=== PATIENT | female | born 1975 | race African-American/Black ===

== ENCOUNTER 2020-07-28 17:12 | Inpatient (IN) | payer OTHER ==
[~2020-07-28] VITALS: Ht 154.9 cm; Wt 119.1 kg
[2020-07-28] MEDS ORDERED: SODIUM CHLORIDE 0.9% 1,000 ML IV ONE (17:45)
[2020-07-28 18:04] LABS: BG BASE EXCESS -3.5 mmol/L (-2.0-2.0); BG CARBOXYHEMOGLOBIN 0.3 % (0.5-1.5); BG DEOXYHEMOGLOBIN 2.1 % (0.0-5.0); BG FRACTION INSPIRED OXYGEN 21; BG HCO3 ACT 18.5 mmol/L (22.0-26.0); BG METHEMOGLOBIN 0.4 % (0.0-1.5); BG OXYGEN SATURATION 97.9 % (92.0-98.5); BG OXYHEMOGLOBIN 97.2 % (94.0-97.0); BG PCO2 24.6 mmHg (35.0-45.0); BG PH 7.493 (7.350-7.450); BG PO2 103.2 mmHg (75.0-100.0); BG SAMPLE SITE RIGHT RADIAL; BG TOTAL HEMOGLOBIN 11.2 g/dL (12.0-18.0); BG VENT MODE ROOM AIR
[2020-07-28 18:14] LABS: EOSINOPHILS % 1.1 % (0.0-5.0); HEMATOCRIT. 33.3 % (36.0-48.0); LYMPHOCYTES % 22.3 % (20.0-50.0); MEAN CORPUSCULAR HEMOGLOBIN 29.8 pg (28.0-32.0); MEAN CORPUSCULAR VOLUME 90.1 fL (81.0-99.0); MEAN PLATELET VOLUME 8.1 fl (7.4-10.4); NEUTROPHILS % 68.6 % (40.0-76.0); PLATELET 342 x1000/uL (130-400); RED CELL DISTRIBUTION WIDTH 15.3 % (11.6-14.6)
[2020-07-28 18:21] LABS: CHLORIDE 108 mEq/L (98-107)
[2020-07-28 18:23] LABS: PROTHROMBIN TIME 10.6 sec (9.6-11.0)
[2020-07-28 18:26] LABS: ETHANOL BLOOD < 10 mg/dL
[2020-07-28 18:30] LABS: CREATINE KINASE 222 IU/L (26-192)
[2020-07-28 18:37] LABS: HCG SCREEN NEGATIVE
[2020-07-28] MEDS ORDERED: LACTATED RINGERS 1,000 ML IV SCH (19:00)
[2020-07-28] MEDS ORDERED: PHENYLEPHRINE 50 MG in DEXT 5% WATER 245 ML IV PRN (19:30)
[2020-07-28] MEDS: MORPHINE SULFATE 2 MG/ML CPJ (NOT FOR IM USE) IV PRN (23:45)
[2020-07-28] MEDS ORDERED: CLONIDINE 0.2MG TABLET PO PRN (23:45)
[2020-07-29] VITALS (10 sets, daily range): BP systolic 128–188; BP diastolic 58–94
[2020-07-29] MEDS: MORPHINE SULFATE 2 MG/ML CPJ (NOT FOR IM USE) IV PRN (04:30)
[2020-07-29] MEDS ORDERED: ACETAMINOPHEN 325MG TABLET PO PRN (09:15)
[2020-07-29] MEDS ORDERED: TRAMADOL 50MG TABLET PO PRN (09:15)
[2020-07-29] MEDS ORDERED: ONDANSETRON HCL 4MG/2ML INJ IV PRN (09:15)
[2020-07-29] MEDS ORDERED: HYDR-4133 PO (10:34)
[2020-07-29] MEDS ORDERED: DEXTROSE 50% WATER 50ML SYRINGE IV PRN (12:45)
[2020-07-29] MEDS: BLOOD SUGAR DIAGNOSTIC STRIP TEST SCH ×3 (12:51→20:58)
[2020-07-29] MEDS: INSULIN LISPRO 100 UNITS/ML SUBCUT SCH ×3 (12:52→20:58)
[2020-07-29] MEDS: AMLODIPINE 10MG TABLET PO SCH (13:04)
[2020-07-29] MEDS: SODIUM CHLORIDE 0.45% 1,000 ML IV SCH (17:00)
[2020-07-29] MEDS ORDERED: HYDRALAZINE HCL 50MG TABLET PO NR (17:00)
[2020-07-29] MEDS ORDERED: MAGNESIUM/ALUMINUM HYDROXIDE/SIMETHICONE 30ML UDC PO PRN (18:30)
[2020-07-29] MEDS: HYDRALAZINE HCL 100MG TABLET PO SCH (20:57)
[2020-07-29 21:10] LABS: TOTAL IRON BINDING CAPACITY 144 ug/dL (250-450)
[2020-07-29 21:37] LABS: FERRITIN 324 ng/mL (10-291)
[2020-07-29 21:39] LABS: VITAMIN B12 SERUM >2000 pg/mL pg/mL (211-911)
[2020-07-30] VITALS (12 sets, daily range): BP systolic 126–162; BP diastolic 63–92
[2020-07-30 06:59] LABS: BASOPHILS % 0.6 % (0.0-2.0); EOSINOPHILS % 2.3 % (0.0-5.0); HEMATOCRIT. 31.8 % (36.0-48.0); HEMOGLOBIN. 10.5 g/dL (12.0-16.0); LYMPHOCYTES % 24.6 % (20.0-50.0); MEAN PLATELET VOLUME 7.9 fl (7.4-10.4); MONOCYTES % 8.2 % (2.0-8.0); NEUTROPHILS % 64.3 % (40.0-76.0); PLATELET 307 x1000/uL (130-400); RED BLOOD CELL COUNT 3.49 mill/uL (4.2-5.4); RED CELL DISTRIBUTION WIDTH 15.7 % (11.6-14.6)
[2020-07-30] MEDS: BLOOD SUGAR DIAGNOSTIC STRIP TEST SCH ×3 (08:28→17:55)
[2020-07-30] MEDS ORDERED: PANTOPRAZOLE SODIUM 40 MG/VIAL IV SCH (09:00)
[2020-07-30] MEDS: AMLODIPINE 10MG TABLET PO SCH (09:46)
[2020-07-30] MEDS: HYDRALAZINE HCL 100MG TABLET PO SCH (09:46)
[2020-07-30] MEDS: INSULIN LISPRO 100 UNITS/ML SUBCUT SCH ×3 (09:47→18:03)
[2020-07-30] MEDS: SODIUM CHLORIDE 0.45% 1,000 ML IV SCH (13:00)
== END 2020-07-30 19:00 | disposition home or self-care (01) | DRG 917 ==
LOC: ER 17:12 → 5EST 19:37 → ENRESERV 07-29 08:23
PROVIDERS: ADMIT Internal Medicine; ATTEND Internal Medicine
DX: T46.5X1A Poisoning by other antihypertensive drugs, accidental (unintentional), initial encounter (principal); N17.0 Acute kidney failure with tubular necrosis; E44.0 Moderate protein-calorie malnutrition; R45.851 Suicidal ideations; K76.0 Fatty (change of) liver, not elsewhere classified; K58.9 Irritable bowel syndrome, unspecified; K44.9 Diaphragmatic hernia without obstruction or gangrene; K21.9 Gastro-esophageal reflux disease without esophagitis; I10 Essential (primary) hypertension; K80.20 Calculus of gallbladder without cholecystitis without obstruction; E11.9 Type 2 diabetes mellitus without complications; D50.9 Iron deficiency anemia, unspecified; E66.9 Obesity, unspecified; Z20.822 Contact with and (suspected) exposure to COVID-19; E87.8 Other disorders of electrolyte and fluid balance, not elsewhere classified; Y92.89 Other specified places as the place of occurrence of the external cause
CPT/HCPCS: 36415; 36600; 71045; 74176; 76705; 76770; 80048; 80053; 80307; 80320; 80329; 82140; 82375; 82550; 82607; 82728; 82746; 82805; 82962; 83036; 83540; 83550; 84443; 84484; 84703; 85025; 86256; 86671; 93005; 99285; C9113; J1815; J2270; J7030; G0480

== ENCOUNTER 2021-07-10 10:10 | Inpatient (IN) | payer OTHER ==
[~2021-07-10] VITALS: Ht 157.5 cm; Wt 101.2 kg
[~2021-07-10 10:10] MED LIST: HYDR-4133 PO
[2021-07-10 12:02] LABS: CHLORIDE 111 mEq/L (98-107)
[2021-07-10 12:11] LABS: BASOPHILS % 0.3 % (0.0-2.0); HEMATOCRIT. 26.7 % (36.0-48.0); HEMOGLOBIN. 8.6 g/dL (12.0-16.0); LYMPHOCYTES % 8.1 % (20.0-50.0); MEAN CORPUSCULAR HEMOGLOBIN 29.8 pg (28.0-32.0); MEAN CORPUSCULAR VOLUME 92.3 fL (81.0-99.0); MEAN PLATELET VOLUME 7.4 fl (7.4-10.4); MONOCYTES % 4.8 % (2.0-8.0); NEUTROPHILS % 85.8 % (40.0-76.0); PLATELET 326 x1000/uL (130-400); RED BLOOD CELL COUNT 2.89 mill/uL (4.2-5.4); RED CELL DISTRIBUTION WIDTH 18.6 % (11.6-14.6)
[2021-07-10] MEDS ORDERED: NITROGLYCERIN 50MG PREMIX 250 ML IV ONE (12:45)
[2021-07-10] MEDS ORDERED: HYDROCODONE/ACETAMINOPHEN 10/325MG TABLET PO ONE (13:45)
[2021-07-10] MEDS ORDERED: NITROGLYCERIN 50MG PREMIX 250 ML IV NR (14:00)
[2021-07-10] MEDS ORDERED: NITROGLYCERIN 50MG PREMIX 250ML IV NR (14:00)
[2021-07-10] MEDS ORDERED: MAGNESIUM/ALUMINUM HYDROXIDE/SIMETHICONE 30ML UDC PO PRN (21:45)
[2021-07-10] MEDS ORDERED: ACETAMINOPHEN 325MG TABLET PO PRN ×2 (21:45)
[2021-07-10] MEDS ORDERED: LORAZEPAM 2MG/ML CPJ IV PRN (21:45)
[2021-07-10] MEDS ORDERED: HYDRALAZINE 20MG/ML VIAL IV PRN (21:45)
[2021-07-10] MEDS ORDERED: DIPHENHYDRAMINE 50MG/ML VIAL IV PRN (21:45)
[2021-07-10] MEDS ORDERED: DEXTROSE 50% WATER 50ML SYRINGE IV PRN (21:45)
[2021-07-10] MEDS ORDERED: MAGNESIUM HYDROXIDE 400MG/5ML 30ML UDC PO PRN (21:45)
[2021-07-10] MEDS ORDERED: ZOLPIDEM TARTRATE 5MG TABLET PO PRN (21:45)
[2021-07-10] MEDS ORDERED: CLONIDINE 0.2MG TABLET PO PRN (22:00)
[2021-07-10] MEDS ORDERED: NALOXONE HCL 0.4 MG/ML 1ML VIAL IV PRN (22:00)
[2021-07-10] MEDS: HYDRALAZINE HCL 100MG TABLET PO SCH (22:51)
[2021-07-10] MEDS: SODIUM CHLORIDE 0.9% INJ 3ML FLUSH IVF SCH (22:52)
[2021-07-10] MEDS ORDERED: INSULIN GLARGINE UD 100 UNITS/ML SYR SUBCUT SCH (23:00)
[2021-07-10] MEDS: ONDANSETRON HCL 4MG/2ML INJ IV PRN (23:33)
[2021-07-11] MEDS: HYDROCODONE/ACETAMINOPHEN 5/325MG TABLET PO PRN (00:05)
[2021-07-11] MEDS: SODIUM CHLORIDE 0.9% INJ 3ML FLUSH IVF SCH ×3 (06:19→21:05)
[2021-07-11] MEDS: HYDRALAZINE HCL 100MG TABLET PO SCH ×3 (06:19→22:27)
[2021-07-11] MEDS: INSULIN LISPRO 100 UNITS/ML SUBCUT SCH ×4 (07:14→21:03)
[2021-07-11] MEDS: ONDANSETRON HCL 4MG/2ML INJ IV PRN (08:32)
[2021-07-11] MEDS: LABETALOL HCL 200MG TABLET PO SCH ×2 (08:33→21:05)
[2021-07-11] MEDS: PANTOPRAZOLE 40MG DR TABLET PO SCH ×2 (08:40→21:05)
[2021-07-11 16:00] VITALS: BP 117/44
[2021-07-11 20:00] VITALS: BP 111/52
[2021-07-11] MEDS ORDERED: INSLIS SUBCUT (20:38)
[2021-07-11] MEDS: INSULIN GLARGINE UD 100 UNITS/ML SYR SUBCUT SCH (22:28)
[2021-07-12] VITALS: BP 124/59
[2021-07-12 04:00] VITALS: BP 100/50
[2021-07-12] MEDS: HYDRALAZINE HCL 100MG TABLET PO SCH ×2 (05:38→14:41)
[2021-07-12] MEDS: SODIUM CHLORIDE 0.9% INJ 3ML FLUSH IVF SCH ×3 (05:41→22:12)
[2021-07-12] MEDS: PANTOPRAZOLE 40MG DR TABLET PO SCH ×2 (05:42→22:10)
[2021-07-12] MEDS: INSULIN LISPRO 100 UNITS/ML SUBCUT SCH ×4 (05:45→21:00)
[2021-07-12 08:00] VITALS: BP 127/43
[2021-07-12] MEDS: LABETALOL HCL 200MG TABLET PO SCH ×2 (09:55→22:07)
[2021-07-12 12:00] VITALS: BP 139/76
[2021-07-12 16:00] VITALS: BP 136/80
[2021-07-12 20:00] VITALS: BP 126/61
[2021-07-12] MEDS: HYDRALAZINE HCL 50MG TABLET PO SCH (22:08)
[2021-07-12] MEDS: INSULIN GLARGINE UD 100 UNITS/ML SYR SUBCUT SCH (22:12)
[2021-07-13] VITALS: BP 112/63
[2021-07-13 04:00] VITALS: BP 136/64
[2021-07-13] MEDS: HYDROCODONE/ACETAMINOPHEN 5/325MG TABLET PO PRN ×2 (04:50→15:34)
[2021-07-13] MEDS: HYDRALAZINE HCL 50MG TABLET PO SCH ×3 (07:00→23:53)
[2021-07-13] MEDS: SODIUM CHLORIDE 0.9% INJ 3ML FLUSH IVF SCH ×2 (07:00→12:47)
[2021-07-13] MEDS: PANTOPRAZOLE 40MG DR TABLET PO SCH ×2 (07:00→20:40)
[2021-07-13] MEDS: INSULIN LISPRO 100 UNITS/ML SUBCUT SCH ×4 (07:01→21:00)
[2021-07-13 08:00] VITALS: BP 137/65
[2021-07-13] MEDS: LABETALOL HCL 200MG TABLET PO SCH ×2 (08:00→20:42)
[2021-07-13] MEDS ORDERED: SODIUM POLYSTYRENE SULFONATE 15 G/60 ML BOT PO NR (11:37)
[2021-07-13 12:00] VITALS: BP 124/62
[2021-07-13] MEDS ORDERED: SODIUM POLYSTYRENE SULFONATE 15 G/60 ML BOT PR SCH (15:00)
[2021-07-13 16:00] VITALS: BP 123/53
[2021-07-13] MEDS ORDERED: SODIUM CHLORIDE 0.9% 1,000 ML IV ONE (16:30)
[2021-07-13 20:00] VITALS: BP 140/60
[2021-07-13] MEDS ORDERED: EPOETIN ALFA-EPBX 10,000 UNIT/ML VIAL SUBCUT SCH (21:00)
[2021-07-13] MEDS: INSULIN GLARGINE UD 100 UNITS/ML SYR SUBCUT SCH (22:33)
[2021-07-14] VITALS: BP 140/53
[2021-07-14 03:52] LABS: CLARITY URINE CLEAR (CLEAR); COLOR URINE YELLOW (YELLOW); KETONES URINE NEGATIVE (NEGATIVE); LEUKOCYTE ESTERASE URINE NEGATIVE (NEGATIVE); NITRITE URINE NEGATIVE (NEGATIVE); OCCULT BLOOD URINE NEGATIVE (NEGATIVE); PROTEIN URINE 3+ (NEGATIVE); SPECIFIC GRAVITY URINE 1.014 (1.005-1.030); UROBILINOGEN URINE 0.2 E.U./dL (0.2-1.0)
[2021-07-14 03:57] LABS: UCG SCREEN NEGATIVE
[2021-07-14 04:00] VITALS: BP 119/50
[2021-07-14] MEDS: HYDRALAZINE HCL 50MG TABLET PO SCH ×2 (06:07→12:45)
[2021-07-14 08:00] VITALS: BP 117/54
[2021-07-14] MEDS: PANTOPRAZOLE 40MG DR TABLET PO SCH ×2 (08:20→22:09)
[2021-07-14] MEDS: INSULIN LISPRO 100 UNITS/ML SUBCUT SCH ×4 (08:21→22:10)
[2021-07-14] MEDS: LABETALOL HCL 200MG TABLET PO SCH ×2 (08:21→22:09)
[2021-07-14 08:22] LABS: CHLORIDE 110 mEq/L (98-107)
[2021-07-14 08:32] LABS: BASOPHILS % 0.5 % (0.0-2.0); EOSINOPHILS % 0.8 % (0.0-5.0); HEMATOCRIT. 21.7 % (36.0-48.0); HEMOGLOBIN. 7.2 g/dL (12.0-16.0); LYMPHOCYTES % 11.1 % (20.0-50.0); MEAN CORPUSCULAR HEMOGLOBIN 30.3 pg (28.0-32.0); MEAN PLATELET VOLUME 8.4 fl (7.4-10.4); MONOCYTES % 8.6 % (2.0-8.0); PLATELET 232 x1000/uL (130-400); RED BLOOD CELL COUNT 2.38 mill/uL (4.2-5.4); RED CELL DISTRIBUTION WIDTH 18.5 % (11.6-14.6)
[2021-07-14] MEDS: ONDANSETRON HCL 4MG/2ML INJ IV PRN ×2 (08:55→22:08)
[2021-07-14] MEDS: HYDROCODONE/ACETAMINOPHEN 5/325MG TABLET PO PRN ×4 (08:55→22:09)
[2021-07-14] MEDS ORDERED: DEXT 5%/0.45% NACL 1000ML 1,000 ML IV ONE (09:45)
[2021-07-14 12:00] VITALS: BP 124/64
[2021-07-14] MEDS: SODIUM CHLORIDE 0.9% INJ 3ML FLUSH IVF SCH (12:44)
[2021-07-14 14:56] LABS: TOTAL IRON BINDING CAPACITY 194 ug/dL (250-450)
[2021-07-14 16:00] VITALS: BP 117/48
[2021-07-14 20:00] VITALS: BP 114/54
[2021-07-14] MEDS: INSULIN GLARGINE UD 100 UNITS/ML SYR SUBCUT SCH (22:10)
[2021-07-15] VITALS: BP 115/46
[2021-07-15 04:00] VITALS: BP 120/53
[2021-07-15] MEDS: HYDRALAZINE HCL 50MG TABLET PO SCH ×3 (07:00→13:04)
[2021-07-15] MEDS: INSULIN LISPRO 100 UNITS/ML SUBCUT SCH ×4 (07:40→21:00)
[2021-07-15 08:00] VITALS: BP 122/53
[2021-07-15] MEDS: PANTOPRAZOLE 40MG DR TABLET PO SCH ×2 (08:00→21:44)
[2021-07-15] MEDS: LABETALOL HCL 200MG TABLET PO SCH ×2 (08:00→21:51)
[2021-07-15] MEDS: ONDANSETRON HCL 4MG/2ML INJ IV PRN (09:31)
[2021-07-15 12:00] VITALS: BP 133/49
[2021-07-15] MEDS: BLOOD SUGAR DIAGNOSTIC STRIP TEST SCH ×3 (12:38→21:45)
[2021-07-15] MEDS: SODIUM CHLORIDE 0.9% INJ 3ML FLUSH IVF SCH ×2 (13:04→21:45)
[2021-07-15] MEDS: HYDROCODONE/ACETAMINOPHEN 5/325MG TABLET PO PRN (13:45)
[2021-07-15 16:00] VITALS: BP 113/42
[2021-07-15 20:00] VITALS: BP 147/57
[2021-07-15] MEDS ORDERED: INSULIN GLARGINE UD 100 UNITS/ML SYR SUBCUT SCH (22:00)
[2021-07-15] MEDS ORDERED: CLONIDINE 0.1MG TABLET PO PRN (22:00)
[2021-07-16] VITALS: BP 115/46
[2021-07-16 04:00] VITALS: BP 127/73
[2021-07-16] MEDS: SODIUM CHLORIDE 0.9% INJ 3ML FLUSH IVF SCH ×2 (06:10→13:35)
[2021-07-16] MEDS: INSULIN LISPRO 100 UNITS/ML SUBCUT SCH ×2 (06:10→13:33)
[2021-07-16] MEDS: PANTOPRAZOLE 40MG DR TABLET PO SCH (06:10)
[2021-07-16] MEDS: BLOOD SUGAR DIAGNOSTIC STRIP TEST SCH ×2 (06:10→12:10)
[2021-07-16 07:17] LABS: EOSINOPHILS % 1.1 % (0.0-5.0); HEMATOCRIT. 22.4 % (36.0-48.0); HEMOGLOBIN. 7.5 g/dL (12.0-16.0); LYMPHOCYTES % 18.4 % (20.0-50.0); MEAN CORPUSCULAR HEMOGLOBIN 30.8 pg (28.0-32.0); MEAN CORPUSCULAR VOLUME 91.8 fL (81.0-99.0); MEAN PLATELET VOLUME 8.3 fl (7.4-10.4); MONOCYTES % 8.3 % (2.0-8.0); NEUTROPHILS % 71.2 % (40.0-76.0); PLATELET 268 x1000/uL (130-400); RED BLOOD CELL COUNT 2.44 mill/uL (4.2-5.4); RED CELL DISTRIBUTION WIDTH 18.6 % (11.6-14.6)
[2021-07-16 08:00] VITALS: BP 135/52
[2021-07-16 08:28] LABS: PHOSPHORUS 5.5 mg/dL (2.5-4.9)
[2021-07-16] MEDS ORDERED: HYDRALAZINE HCL 25MG TABLET PO SCH (09:00)
[2021-07-16] MEDS ORDERED: IRON SUCROSE COMPLEX 100 MG/5 ML ML IV SCH (09:00)
[2021-07-16] MEDS ORDERED: LABETALOL HCL 100MG TABLET PO SCH (09:00)
[2021-07-16 12:00] VITALS: BP 141/54
[2021-07-16 14:26] LABS: HEPATITIS B SURFACE ANTIGEN NEGATIVE
[2021-07-16 16:00] VITALS: BP 150/50
[2021-07-16 16:32] VITALS: BP 150/50
[2021-07-16] MEDS ORDERED: EPOETIN ALFA-EPBX 10,000 UNIT/ML VIAL SUBCUT SCH (21:00)
[2021-07-18 09:06] LABS: IMMUNOGLOBULIN A 164 mg/dL (87-352); IMMUNOGLOBULIN G 1342 mg/dL (586-1602); IMMUNOGLOBULIN M 122 mg/dL (26-217)
[2021-07-18 13:06] LABS: A/G RATIO 0.9 (0.7-1.7); ALBUMIN 2.9 g/dL (2.9-4.4); ALPHA-1-GLOBULIN 0.3 g/dL (0.0-0.4); ALPHA-2-GLOBULIN 0.8 g/dL (0.4-1.0); BETA GLOBULIN 0.9 g/dL (0.7-1.3); GAMMA GLOBULINS 1.4 g/dL (0.4-1.8); GLOBULIN TOTAL 3.4 g/dL (2.2-3.9); M-SPIKE Not Observed g/dL (Not Observed); TOTAL PROTEIN SERUM 6.3 g/dL (6.0-8.5)
== END 2021-07-16 17:10 | disposition home or self-care (01) | DRG 304 ==
LOC: ER 10:10 → MICUSO 17:03 → EDBEDREQ 17:06 → EDBEDREQTM 17:06 → EDBEDREQSVC 17:06 → 8WST 07-11 16:32
PROVIDERS: ADMIT Internal Medicine; ATTEND Internal Medicine
DX: I16.1 Hypertensive emergency (principal); E43 Unspecified severe protein-calorie malnutrition; N17.9 Acute kidney failure, unspecified; J84.9 Interstitial pulmonary disease, unspecified; K56.609 Unspecified intestinal obstruction, unspecified as to partial versus complete obstruction; Z68.41 Body mass index [BMI] 40.0-44.9, adult; N18.4 Chronic kidney disease, stage 4 (severe); R55 Syncope and collapse; I12.9 Hypertensive chronic kidney disease with stage 1 through stage 4 chronic kidney disease, or unspecified chronic kidney disease; E11.22 Type 2 diabetes mellitus with diabetic chronic kidney disease; E66.9 Obesity, unspecified; D63.8 Anemia in other chronic diseases classified elsewhere; E11.65 Type 2 diabetes mellitus with hyperglycemia; E11.319 Type 2 diabetes mellitus with unspecified diabetic retinopathy without macular edema; E87.5 Hyperkalemia; G89.29 Other chronic pain; K21.9 Gastro-esophageal reflux disease without esophagitis; K44.9 Diaphragmatic hernia without obstruction or gangrene; D50.9 Iron deficiency anemia, unspecified; K76.0 Fatty (change of) liver, not elsewhere classified; K80.20 Calculus of gallbladder without cholecystitis without obstruction; Z82.49 Family history of ischemic heart disease and other diseases of the circulatory system; Z90.710 Acquired absence of both cervix and uterus; Z85.42 Personal history of malignant neoplasm of other parts of uterus; Z87.19 Personal history of other diseases of the digestive system; Z98.891 History of uterine scar from previous surgery; Z20.822 Contact with and (suspected) exposure to COVID-19
CPT/HCPCS: 36415; 71045; 74176; 76770; 76830; 76856; 80048; 80053; 81003; 81025; 82728; 82784; 82962; 83036; 83540; 83550; 83880; 84100; 84155; 84165; 84484; 85025; 86334; 86705; 86709; 86803; 87340; 87426; 93005; 99291; C1893; J0885; J1200; J1815; J2060; J2405; J3490

== ENCOUNTER 2022-04-17 17:37 | Emergency (ER) | payer OTHER ==
[~2022-04-17] VITALS: Ht 157.5 cm; Wt 73.0 kg
[~2022-04-17 17:37] MED LIST changes: +INSLIS SUBCUT
[2022-04-17] MEDS ORDERED: MORPHINE SULFATE 4 MG/ML CPJ (NOT FOR IM USE) IV STA (18:09)
[2022-04-17] MEDS ORDERED: ONDANSETRON HCL 4MG/2ML INJ IV STA (18:09)
[2022-04-17] MEDS ORDERED: FAMOTIDINE 20MG/2ML VIAL IV ONE (18:15)
[2022-04-17] MEDS ORDERED: SODIUM CHLORIDE 0.9% 1,000 ML IV ONE (18:15)
[2022-04-17 19:17] LABS: BASOPHILS % 0.5 % (0.0-2.0); EOSINOPHILS % 2.2 % (0.0-5.0); HEMATOCRIT. 29.7 % (36.0-48.0); HEMOGLOBIN. 10.2 g/dL (12.0-16.0); LYMPHOCYTES % 16.8 % (20.0-50.0); MEAN CORPUSCULAR HEMOGLOBIN 33.7 pg (28.0-32.0); MEAN CORPUSCULAR VOLUME 98.1 fL (81.0-99.0); MEAN PLATELET VOLUME 6.5 fl (7.4-10.4); MONOCYTES % 5.4 % (2.0-8.0); NEUTROPHILS % 75.1 % (40.0-76.0); PLATELET 445 x1000/uL (130-400); RED BLOOD CELL COUNT 3.03 mill/uL (4.2-5.4); RED CELL DISTRIBUTION WIDTH 16.4 % (11.6-14.6)
[2022-04-17 19:30] LABS: CHLORIDE 98 mEq/L (98-107)
[2022-04-17 19:35] LABS: HCG SCREEN NEGATIVE
[2022-04-17] MEDS ORDERED: ASPIRIN 81MG TABLET PO ONE (21:45)
[2022-04-17 22:22] VITALS: BP 142/69
== END 2022-04-17 23:50 | disposition short-term general hospital (02) ==
LOC: ER 17:37
DX: R10.13 Epigastric pain (principal); K56.41 Fecal impaction; R11.2 Nausea with vomiting, unspecified; R94.39 Abnormal result of other cardiovascular function study; I21.4 Non-ST elevation (NSTEMI) myocardial infarction; E11.22 Type 2 diabetes mellitus with diabetic chronic kidney disease; I12.0 Hypertensive chronic kidney disease with stage 5 chronic kidney disease or end stage renal disease; N18.6 End stage renal disease; D63.1 Anemia in chronic kidney disease; Z99.2 Dependence on renal dialysis; Z20.822 Contact with and (suspected) exposure to COVID-19; Z90.710 Acquired absence of both cervix and uterus; Z79.4 Long term (current) use of insulin
CPT/HCPCS: 36415; 71045; 74176; 80053; 83690; 83880; 84484; 84703; 85025; 87426; 93005; 96361; 96374; 96375; 99285; C9803; J2270; J2405; J3490; J7030

== ENCOUNTER 2022-10-12 15:47 | Emergency (ER) | payer OTHER ==
[~2022-10-12] VITALS: Ht 167.6 cm; Wt 63.0 kg
[2022-10-12 17:38] LABS: BASOPHILS % 0.7 % (0.0-2.0); EOSINOPHILS % 3.9 % (0.0-5.0); HEMATOCRIT. 35.7 % (36.0-48.0); HEMOGLOBIN. 12.1 g/dL (12.0-16.0); LYMPHOCYTES % 38.1 % (20.0-50.0); MEAN CORPUSCULAR HEMOGLOBIN 33.5 pg (28.0-32.0); MEAN CORPUSCULAR VOLUME 98.8 fL (81.0-99.0); MEAN PLATELET VOLUME 7.3 fl (7.4-10.4); MONOCYTES % 8.7 % (2.0-8.0); NEUTROPHILS % 48.6 % (40.0-76.0); PLATELET 258 x1000/uL (130-400); RED BLOOD CELL COUNT 3.61 mill/uL (4.2-5.4)
[2022-10-12 17:49] LABS: CHLORIDE 101 mEq/L (98-107)
[2022-10-12 17:54] LABS: PROTHROMBIN TIME 10.4 sec (9.6-11.0)
[2022-10-12 18:00] VITALS: BP 164/53
== END 2022-10-12 19:40 | disposition home or self-care (01) ==
LOC: ER 15:47
DX: I47.1 Supraventricular tachycardia (principal); I12.0 Hypertensive chronic kidney disease with stage 5 chronic kidney disease or end stage renal disease; E11.22 Type 2 diabetes mellitus with diabetic chronic kidney disease; N18.6 End stage renal disease; Z99.2 Dependence on renal dialysis; D64.9 Anemia, unspecified
CPT/HCPCS: 36415; 71045; 80053; 83880; 84484; 85025; 85610; 93005; 99285; Z7610

== ENCOUNTER 2023-07-28 19:54 | Emergency (ER) | payer OTHER, MEDICAID ==
[~2023-07-28] VITALS: Ht 165.1 cm; Wt 100.0 kg
[2023-07-28 19:58] VITALS: O2SAT 98
[2023-07-28] MEDS ORDERED: IBUPROFEN 600MG TABLET PO STA (20:30)
[2023-07-28] MEDS ORDERED: HYDROMORPHONE HCL/PF 2MG/ML CPJ IM ONE (20:30)
[2023-07-28] MEDS ORDERED: ONDANSETRON 4MG ODT PO ONE (20:45)
[2023-07-28 21:37] LABS: ALANINE AMINOTRANSFERASE 10 IU/L (10-49); ALBUMIN 4.6 g/dL (3.2-4.8); ASPARTATE AMINOTRANSFERASE 20 IU/L (<34); BILIRUBIN TOTAL 0.3 mg/dL (0.1-1.0); CALCIUM 9.1 mg/dL (8.7-10.4); CARBON DIOXIDE 24 mEq/L (21-32); CHLORIDE 104 mEq/L (98-107); GLUCOSE 174 mg/dL (70-105); PROTEIN TOTAL 8.4 g/dL (6.0-8.3); SODIUM 138 mEq/L (136-145); UREA NITROGEN BLOOD 44 mg/dL (9-23)
[2023-07-28 21:51] LABS: CREATININE 8.6 mg/dL (0.6-1.0); ETHANOL BLOOD < 10 mg/dL (<10)
[2023-07-28] MEDS ORDERED: HYDR-4001 MT (21:59)
[2023-07-28 22:46] LABS: BASOPHILS % 0.6 % (0.0-2.0); DIFFERENTIAL COMMENT 0; EOSINOPHILS % 0.6 % (0.0-5.0); HEMATOCRIT. 39.8 % (36.0-48.0); LYMPHOCYTES % 9.8 % (20.0-50.0); MEAN CORPUSCULAR HGB CONC 32.7 g/dL (31.0-37.0); MEAN CORPUSCULAR VOLUME 103.8 fL (81.0-99.0); MEAN PLATELET VOLUME 7.7 fl (7.4-10.4); MONOCYTES % 5.7 % (2.0-8.0); NEUTROPHILS % 83.3 % (40.0-76.0); PLATELET 225 x1000/uL (130-400); RED BLOOD CELL COUNT 3.83 mill/uL (4.2-5.4); RED CELL DISTRIBUTION WIDTH 14.7 % (11.6-14.6); WHITE BLOOD COUNT 13.4 x1000/uL (4.5-11.0)
[2023-07-28 22:59] LABS: PROTHROMBIN TIME 10.7 sec (9.6-11.0)
[2023-07-29] MEDS ORDERED: MORPHINE SULFATE 4 MG/ML CPJ (NOT FOR IM USE) IV NR
[2023-07-29 00:50] LABS: HCG SCREEN NEGATIVE
[2023-07-29 00:51] LABS: CLARITY URINE CLOUDY (CLEAR); COLOR URINE YELLOW (YELLOW); GLUCOSE URINE TRACE (NEGATIVE); KETONES URINE TRACE (NEGATIVE); LEUKOCYTE ESTERASE URINE TRACE (NEGATIVE); NITRITE URINE NEGATIVE (NEGATIVE); OCCULT BLOOD URINE 1+ (NEGATIVE); PROTEIN URINE 3+ (NEGATIVE); SPECIFIC GRAVITY URINE 1.014 (1.005-1.030); UROBILINOGEN URINE 0.2 E.U./dL (0.2-1.0)
[2023-07-29 01:00] LABS: *AMPHETAMINES SCREEN URINE NEGATIVE (NEGATIVE); *BARBITURATES SCREEN URINE NEGATIVE (NEGATIVE); *BENZODIAZEPINES SCREEN URINE NEGATIVE (NEGATIVE); *COCAINE SCREEN URINE NEGATIVE (NEGATIVE); CANNABINOID URINE SCREEN NEGATIVE (NEGATIVE); ECSTASY MDMA SCREEN URINE NEGATIVE (NEGATIVE); METHADONE URINE SCREEN Neg (NEGATIVE); OPIATES URINE SCREEN NEGATIVE (NEGATIVE); PHENCYCLIDINE URINE SCREEN NEGATIVE (NEGATIVE)
[2023-07-29] MEDS ORDERED: MORPHINE SULFATE 2 MG/ML CPJ (NOT FOR IM USE) IV NR (03:15)
[2023-07-29] MEDS ORDERED: CEFEPIME 1,000 MG in DEXTROSE 5% WATER 50 ML IV NR (03:15)
[2023-07-29 06:00] LABS: SQUAMOUS EPITHELIAL CELL URINE 1+ /lpf (RARE/1+); WBC URINE 0-2 /hpf (0-2)
[2023-07-29 06:02] LABS: RBC URINE 0-2 /hpf (0-2)
[2023-07-29 06:03] LABS: BACTERIA URINE 1+
[2023-07-29 08:05] VITALS: BP 140/59; PULSE 58; RESP 15; TEMP 98
== END 2023-07-29 08:26 | disposition short-term general hospital (02) ==
LOC: ER 19:54
DX: N18.6 End stage renal disease (principal); D64.9 Anemia, unspecified; E11.9 Type 2 diabetes mellitus without complications; I12.0 Hypertensive chronic kidney disease with stage 5 chronic kidney disease or end stage renal disease; Z90.710 Acquired absence of both cervix and uterus; Z99.2 Dependence on renal dialysis; Z20.822 Contact with and (suspected) exposure to COVID-19
CPT/HCPCS: 80053; 80320; 83690; 85025; 85610; 36415 ×2; 96372 ×2; 99285; 80305; 81003; 81025; 84703; 83605; 87040; 87804 ×2; 84145; 74176; 93005; 96365; 96366; 87426; Q0162; J1170; Z7610 ×3; J0692; J2270; J7060; G0480

== ENCOUNTER 2024-03-30 08:34 | Emergency (ER) | payer OTHER, MEDICAID ==
[~2024-03-30] VITALS: Ht 165.1 cm; Wt 100.0 kg
[~2024-03-30 08:34] MED LIST changes: +HYDR-2988 PO; +HYDR-4001 MT; -HYDR-4133 PO
[2024-03-30 08:36] VITALS: O2SAT 99
[2024-03-30 09:15] LABS: BASOPHILS % 0.4 % (0.0-2.0); DIFFERENTIAL COMMENT 0; HEMATOCRIT. 39.6 % (36.0-48.0); HEMOGLOBIN. 12.9 g/dL (12.0-16.0); LYMPHOCYTES % 10.6 % (20.0-50.0); MEAN CORPUSCULAR HEMOGLOBIN 33.6 pg (28.0-32.0); MEAN CORPUSCULAR HGB CONC 32.6 g/dL (31.0-37.0); MONOCYTES % 5.9 % (2.0-8.0); NEUTROPHILS % 82.1 % (40.0-76.0); PLATELET 218 x1000/uL (130-400); RED BLOOD CELL COUNT 3.85 mill/uL (4.2-5.4); RED CELL DISTRIBUTION WIDTH 16.6 % (11.6-14.6); WHITE BLOOD COUNT 11.4 x1000/uL (4.5-11.0)
[2024-03-30 09:23] LABS: CHLORIDE 105 mEq/L (98-107); POTASSIUM 4.3 mEq/L (3.5-5.1); SODIUM 141 mEq/L (136-145)
[2024-03-30 09:24] LABS: CARBON DIOXIDE 22 mEq/L (21-32)
[2024-03-30 09:25] LABS: CALCIUM 9.1 mg/dL (8.7-10.4)
[2024-03-30 09:28] LABS: HCG SCREEN NEGATIVE
[2024-03-30 09:29] LABS: GLUCOSE 128 mg/dL (70-105)
[2024-03-30] MEDS: DICYCLOMINE HCL 10MG CAPSULE PO ONE (09:29)
[2024-03-30] MEDS: HYDROCODONE/ACETAMINOPHEN 5/325MG TABLET PO ONE (09:29)
[2024-03-30 09:30] LABS: UREA NITROGEN BLOOD 41 mg/dL (9-23)
[2024-03-30 09:31] LABS: ALANINE AMINOTRANSFERASE < 7 IU/L (10-49); ALBUMIN 4.7 g/dL (3.2-4.8); ASPARTATE AMINOTRANSFERASE 22 IU/L (<34)
[2024-03-30 09:32] LABS: BILIRUBIN TOTAL 0.3 mg/dL (0.1-1.0); PROTEIN TOTAL 8.7 g/dL (6.0-8.3)
[2024-03-30 09:35] LABS: BILIRUBIN DIRECT < 0.1 mg/dL (<=3.0)
[2024-03-30 09:37] LABS: CREATININE 9.7 mg/dL (0.6-1.0)
[2024-03-30 12:07] VITALS: BP 144/63; PULSE 59; RESP 18; TEMP 36.78072; O2SAT 100
== END 2024-03-30 13:18 | disposition home or self-care (01) ==
LOC: ER 08:34
DX: I12.0 Hypertensive chronic kidney disease with stage 5 chronic kidney disease or end stage renal disease (principal); E11.22 Type 2 diabetes mellitus with diabetic chronic kidney disease; D64.9 Anemia, unspecified; N18.6 End stage renal disease; Z99.2 Dependence on renal dialysis
CPT/HCPCS: 36415; 74176; 80048; 80076; 84703; 85025; 99284

== ENCOUNTER 2024-04-08 14:11 | Inpatient (IN) | payer OTHER, MEDICAID ==
[~2024-04-08] VITALS: Ht 157.5 cm; Wt 99.4 kg
[2024-04-08 16:02] LABS: BASOPHILS % 0.5 % (0.0-2.0); DIFFERENTIAL COMMENT 0; EOSINOPHILS % 3.1 % (0.0-5.0); HEMATOCRIT. 36.5 % (36.0-48.0); HEMOGLOBIN. 12.1 g/dL (12.0-16.0); MEAN CORPUSCULAR HEMOGLOBIN 33.9 pg (28.0-32.0); MEAN CORPUSCULAR HGB CONC 33.2 g/dL (31.0-37.0); MEAN CORPUSCULAR VOLUME 102.1 fL (81.0-99.0); MEAN PLATELET VOLUME 7.8 fl (7.4-10.4); MONOCYTES % 7.3 % (2.0-8.0); NEUTROPHILS % 75.1 % (40.0-76.0); PLATELET 340 x1000/uL (130-400); RED BLOOD CELL COUNT 3.58 mill/uL (4.2-5.4); RED CELL DISTRIBUTION WIDTH 15.6 % (11.6-14.6); WHITE BLOOD COUNT 7.3 x1000/uL (4.5-11.0)
[2024-04-08 16:11] LABS: PROTHROMBIN TIME 10.8 sec (9.6-11.0)
[2024-04-08 16:14] LABS: CHLORIDE 103 mEq/L (98-107); POTASSIUM 5.2 mEq/L (3.5-5.1); SODIUM 138 mEq/L (136-145)
[2024-04-08 16:15] LABS: CARBON DIOXIDE 20 mEq/L (21-32)
[2024-04-08 16:16] LABS: HCG SCREEN NEGATIVE
[2024-04-08 16:20] LABS: GLUCOSE 109 mg/dL (70-105); UREA NITROGEN BLOOD 82 mg/dL (9-23)
[2024-04-08 16:22] LABS: ALANINE AMINOTRANSFERASE < 7 IU/L (10-49); ALBUMIN 4.1 g/dL (3.2-4.8); ASPARTATE AMINOTRANSFERASE 12 IU/L (<34); BILIRUBIN TOTAL < 0.2 mg/dL (0.1-1.0); PROTEIN TOTAL 8.2 g/dL (6.0-8.3)
[2024-04-08 16:26] LABS: BILIRUBIN DIRECT < 0.1 mg/dL (<=3.0)
[2024-04-08 16:29] LABS: CREATININE 18.8 mg/dL (0.6-1.0); TROPONIN I HIGH SENSITIVITY 43 ng/L (3.0-34)
[2024-04-08] MEDS ORDERED: SODIUM ZIRCONIUM CYCLOSILICATE 10GM/PACKET PO ONE (16:45)
[2024-04-08] MEDS ORDERED: INSULIN REGULAR (HUMULIN R) 1000UNITS/10ML VIAL IV ONE (16:45)
[2024-04-08] MEDS ORDERED: DEXTROSE 50% WATER 50ML SYRINGE IV ONE (16:45)
[2024-04-08] MEDS ORDERED: CALCIUM GLUCONATE 1GM PREMIX 50 ML IV ONE (16:45)
[2024-04-08] MEDS: FUROSEMIDE 40MG/4ML VIAL IVP ONE (18:07)
[2024-04-08] MEDS: MORPHINE SULFATE 2 MG/ML INJ (NOT FOR IM USE) IV ONE (18:17)
[2024-04-08] MEDS: SODIUM ZIRCONIUM CYCLOSILICATE 10GM/PACKET PO NR (18:18)
[2024-04-08] MEDS: PANTOPRAZOLE SODIUM 40 MG/VIAL IV ONE (18:18)
[2024-04-08 19:35] LABS: CLARITY URINE CLOUDY (CLEAR); COLOR URINE YELLOW (YELLOW); GLUCOSE URINE NEGATIVE (NEGATIVE); KETONES URINE TRACE (NEGATIVE); LEUKOCYTE ESTERASE URINE 2+ (NEGATIVE); NITRITE URINE NEGATIVE (NEGATIVE); OCCULT BLOOD URINE 2+ (NEGATIVE); PH URINE 5.5 (4.5-8.0); PROTEIN URINE 2+ (NEGATIVE); SPECIFIC GRAVITY URINE 1.018 (1.005-1.030); UROBILINOGEN URINE 0.2 E.U./dL (0.2-1.0)
[2024-04-08] MEDS: CALCIUM GLUCONATE 1GM PREMIX 50 ML IV NR (19:44)
[2024-04-08] MEDS: DEXTROSE 50% WATER 50ML SYRINGE IV NR (19:44)
[2024-04-08] MEDS: INSULIN REGULAR (HUMULIN R) 1000UNITS/10ML VIAL IV NR (19:44)
[2024-04-08 19:59] LABS: BACTERIA URINE TRACE; RBC URINE 15-25 /hpf (0-2); WBC URINE 25-50 /hpf (0-2)
[2024-04-08 20:00] LABS: SQUAMOUS EPITHELIAL CELL URINE 2+ /lpf (RARE/1+)
[2024-04-08] MEDS: CEFTRIAXONE 1GM/50ML 50 ML IV ONE (20:51)
[2024-04-08] MEDS: MORPHINE SULFATE 4 MG/ML INJ (FOR IV/IM USE) IV ONE (20:51)
[2024-04-08] MEDS: ONDANSETRON HCL 4MG/2ML INJ IV ONE (21:14)
[2024-04-08] MEDS ORDERED: ONDANSETRON HCL 4MG/2ML INJ IV PRN (21:45)
[2024-04-08] MEDS ORDERED: ACETAMINOPHEN 325MG TABLET PO PRN (21:45)
[2024-04-08] MEDS ORDERED: NITROGLYCERIN 0.4MG TABLET SL SL PRN (21:45)
[2024-04-08] MEDS ORDERED: IPRATROPIUM/ALBUTEROL 0.5-3(2.5)MG/3ML NEB NEB PRN (21:45)
[2024-04-08] MEDS ORDERED: GUAIFENESIN 200MG/10ML SUGAR FREE UDC PO PRN (21:45)
[2024-04-08] MEDS ORDERED: DOCUSATE SODIUM 100MG CAPSULE PO PRN (21:45)
[2024-04-08] MEDS ORDERED: MAGNESIUM/ALUMINUM HYDROXIDE/SIMETHICONE 30ML UDC PO PRN (21:45)
[2024-04-08] MEDS ORDERED: ZOLPIDEM TARTRATE 5MG TABLET PO PRN (21:45)
[2024-04-08] MEDS ORDERED: CLONIDINE 0.1MG TABLET PO PRN (21:45)
[2024-04-08] MEDS: NITROGLYCERIN OINT 1GM/INCH UDPKT TD NR (22:07)
[2024-04-08] MEDS: DIPHENHYDRAMINE 50MG/ML VIAL IV ONE (22:07)
[2024-04-08] MEDS ORDERED: DEXTROSE 50% WATER 50ML SYRINGE IV PRN (22:15)
[2024-04-08] MEDS: NITROGLYCERIN OINT 1GM/INCH UDPKT TD SCH (22:15)
[2024-04-08 22:16] LABS: IRON 85 ug/dL (50-170)
[2024-04-08 22:17] LABS: TRIGLYCERIDE 131 mg/dL (0-150)
[2024-04-08 22:18] LABS: LDL CHOLESTEROL 94 mg/dL (5-100)
[2024-04-08 22:19] LABS: CHOLESTEROL 182 mg/dL (<200); HDL CHOLESTEROL 49 mg/dL (>65); TOTAL IRON BINDING CAPACITY 305 ug/dl (250-425)
[2024-04-08 22:22] LABS: THYROID STIMULATING HORMONE 4.65 uIU/mL (0.55-4.78)
[2024-04-08 22:29] LABS: FOLIC ACID (FOLATE) SERUM 18.06 ng/mL (>5.38)
[2024-04-08] MEDS: PIPERACILLIN/TAZO 3.375G/50ML 50 ML IV SCH (22:38)
[2024-04-08 22:46] LABS: VITAMIN B12 SERUM > 2000 pg/mL (211-911)
[2024-04-08] MEDS ORDERED: VANCOMYCIN 2,000 MG in DEXT 5% WATER 500 ML IV NR (23:00)
[2024-04-08 23:06] LABS: CREATINE KINASE MB FRACTION 3.7 ng/mL (0.5-3.6)
[2024-04-09] VITALS (18 sets, daily range): BP systolic 102–166; BP diastolic 48–85; PULSE 61–90; RESP 17–19; TEMP 36.33624–36.72516; O2SAT 97–100
[2024-04-09] MEDS: ACETAMINOPHEN 325MG TABLET PO PRN (00:47)
[2024-04-09] MEDS ORDERED: NITROGLYCERIN OINT 1GM/INCH UDPKT TD SCH (06:00)
[2024-04-09 06:18] LABS: CREATINE KINASE MB FRACTION 3.6 ng/mL (0.5-3.6)
[2024-04-09] MEDS: BLOOD SUGAR DIAGNOSTIC STRIP TEST SCH (06:23)
[2024-04-09 06:24] LABS: BASOPHILS % 0.9 % (0.0-2.0); DIFFERENTIAL COMMENT 0; EOSINOPHILS % 3.7 % (0.0-5.0); HEMATOCRIT. 35.3 % (36.0-48.0); HEMOGLOBIN. 11.4 g/dL (12.0-16.0); LYMPHOCYTES % 22.9 % (20.0-50.0); MEAN CORPUSCULAR HEMOGLOBIN 32.9 pg (28.0-32.0); MEAN CORPUSCULAR HGB CONC 32.2 g/dL (31.0-37.0); MEAN PLATELET VOLUME 7.7 fl (7.4-10.4); MONOCYTES % 9.4 % (2.0-8.0); NEUTROPHILS % 63.1 % (40.0-76.0); PLATELET 339 x1000/uL (130-400); RED BLOOD CELL COUNT 3.45 mill/uL (4.2-5.4); RED CELL DISTRIBUTION WIDTH 15.7 % (11.6-14.6); WHITE BLOOD COUNT 5.9 x1000/uL (4.5-11.0)
[2024-04-09] MEDS: INSULIN LISPRO 100 UNITS/ML SUBCUT SCH (06:24)
[2024-04-09] MEDS: SEVELAMER CARBONATE 800 MG TABLET PO SCH (06:25)
[2024-04-09] MEDS: FAMOTIDINE 20MG TABLET PO SCH (08:54)
[2024-04-09] MEDS: FOLIC ACID/VITAMIN B COMP W-C TABLET PO SCH (08:54)
[2024-04-09] MEDS: ASPIRIN 81MG EC TABLET PO SCH (08:55)
[2024-04-09] MEDS ORDERED: LIDOCAINE HCL 1% 10 MG/ML 10ML VIAL ONE (13:59)
[2024-04-09 14:16] LABS: CHLORIDE 105 mEq/L (98-107); SODIUM 140 mEq/L (136-145)
[2024-04-09 14:17] LABS: CALCIUM 9.4 mg/dL (8.7-10.4); CARBON DIOXIDE 15 mEq/L (21-32)
[2024-04-09 14:22] LABS: GLUCOSE 57 mg/dL (70-105); UREA NITROGEN BLOOD 82 mg/dL (9-23)
[2024-04-09 14:24] LABS: ALANINE AMINOTRANSFERASE < 7 IU/L (10-49); ALBUMIN 4.3 g/dL (3.2-4.8); ASPARTATE AMINOTRANSFERASE 19 IU/L (<34)
[2024-04-09 14:25] LABS: BILIRUBIN TOTAL < 0.2 mg/dL (0.1-1.0); PROTEIN TOTAL 7.9 g/dL (6.0-8.3)
[2024-04-09 14:28] LABS: CREATININE 19.3 mg/dL (0.6-1.0)
[2024-04-09 14:31] LABS: PHOSPHORUS 9.3 mg/dL (2.5-4.9)
[2024-04-09 14:40] LABS: HEPATITIS B SURFACE ANTIGEN NEGATIVE (Negative)
[2024-04-09 15:00] LABS: HEPATITIS A AB IGM NEGATIVE (Negative)
[2024-04-09 15:01] LABS: HEPATITIS B CORE AB IGM NEGATIVE (Negative); HEPATITIS C AB NON REACTIVE (Neg) (Negative)
[2024-04-09] MEDS: VANCOMYCIN 2,000 MG in DEXT 5% WATER 500 ML IV SCH (18:22)
[2024-04-09] MEDS: ENOXAPARIN 40MG/0.4ML SYR SUBCUT SCH (21:17)
== END 2024-04-09 23:38 | disposition short-term general hospital (02) | DRG 871 ==
LOC: ER 14:11 → 7EST 21:23 → EDBEDREQ 22:10 → EDBEDREQTM 22:10
PROVIDERS: ADMIT Internal Medicine; ATTEND Internal Medicine
PROC: 02HV33Z Insertion of Infusion Device into Superior Vena Cava, Percutaneous Approach (ICD-10-PCS; principal; 2024-04-09)
PROC: B548ZZA Ultrasonography of Superior Vena Cava, Guidance (ICD-10-PCS; 2024-04-09)
PROC: 5A1D70Z Performance of Urinary Filtration, Intermittent, Less than 6 Hours Per Day (ICD-10-PCS; 2024-04-09)
DX: A41.9 Sepsis, unspecified organism (principal); I21.4 Non-ST elevation (NSTEMI) myocardial infarction; J18.9 Pneumonia, unspecified organism; N18.6 End stage renal disease; I12.0 Hypertensive chronic kidney disease with stage 5 chronic kidney disease or end stage renal disease; N39.0 Urinary tract infection, site not specified; D64.9 Anemia, unspecified; E11.22 Type 2 diabetes mellitus with diabetic chronic kidney disease; E78.5 Hyperlipidemia, unspecified; E87.5 Hyperkalemia; G89.29 Other chronic pain; K29.70 Gastritis, unspecified, without bleeding; I16.0 Hypertensive urgency; K57.30 Diverticulosis of large intestine without perforation or abscess without bleeding; K44.9 Diaphragmatic hernia without obstruction or gangrene; K58.9 Irritable bowel syndrome, unspecified; Z82.49 Family history of ischemic heart disease and other diseases of the circulatory system; Z90.49 Acquired absence of other specified parts of digestive tract; Z90.710 Acquired absence of both cervix and uterus; Z99.2 Dependence on renal dialysis
CPT/HCPCS: 36415; 36573; 71045; 74176; 80048; 80053; 80061; 80076; 81003; 82550; 82553; 82607; 82746; 82962; 83036; 83540; 83550; 83735; 83880; 84100; 84439; 84443; 84484; 84703; 85025; 86705; 86709; 87106; 87340; 90935; 93005; 93306; 93970; 99291; C1725; C1893; J0610; J0696; J1200; J1650; J1815; J1940; J2270; J2405; J2470; J2543; J3370; J3490; J7060

== ENCOUNTER 2025-03-18 22:47 | Emergency (ER) | payer OTHER, MEDICAID ==
[~2025-03-18] VITALS: Ht 157.5 cm; Wt 90.0 kg
[2025-03-18 22:59] VITALS: O2SAT 100
[2025-03-19] MEDS: ONDANSETRON HCL 4MG/2ML INJ IV ONE (01:13)
[2025-03-19] MEDS: MORPHINE SULFATE 4 MG/ML INJ (FOR IV/IM USE) IV ONE (01:13)
[2025-03-19 01:15] LABS: BASOPHILS % 0.7 % (0.0-2.0); EOSINOPHILS % 0.3 % (0.0-5.0); HEMATOCRIT. 34.8 % (36.0-48.0); HEMOGLOBIN. 10.6 g/dL (12.0-16.0); LYMPHOCYTES % 8.7 % (20.0-50.0); MEAN PLATELET VOLUME 6.8 fl (7.4-10.4); MONOCYTES % 7.6 % (2.0-8.0); NEUTROPHILS % 82.7 % (40.0-76.0); PLATELET 616 x1000/uL (130-400); RED BLOOD CELL COUNT 3.81 mill/uL (4.2-5.4); RED CELL DISTRIBUTION WIDTH 22.1 % (11.6-14.6)
[2025-03-19 01:16] LABS: ADD RBC MORPHOLOGY YES
[2025-03-19 01:27] LABS: UREA NITROGEN BLOOD 5 mg/dL (9-23)
[2025-03-19 01:29] LABS: ASPARTATE AMINOTRANSFERASE 31 IU/L (<34); BILIRUBIN DIRECT < 0.1 mg/dL (<=3.0); BILIRUBIN TOTAL < 0.2 mg/dL (0.1-1.0); PROTEIN TOTAL 7.7 g/dL (6.0-8.3)
[2025-03-19 01:34] LABS: CREATININE 1.6 mg/dL (0.6-1.0)
[2025-03-19 02:35] LABS: HCG SCREEN NEGATIVE
[2025-03-19] MEDS: MORPHINE SULFATE 4 MG/ML INJ (FOR IV/IM USE) IV NR (02:55)
[2025-03-19 04:12] VITALS: BP 116/69; PULSE 97; RESP 20; TEMP 37.1; O2SAT 100
[2025-03-19 04:14] LABS: TROPONIN I HIGH SENSITIVITY 34 ng/L (3.0-34)
[2025-03-19 05:23] LABS: PLATELET ESTIMATE INCREASED
== END 2025-03-19 04:45 | disposition short-term general hospital (02) ==
LOC: ER 22:52 → CMPBEDREQ 03-19 08:03
DX: R10.84 Generalized abdominal pain (principal); E11.9 Type 2 diabetes mellitus without complications; I10 Essential (primary) hypertension; N19 Unspecified kidney failure; Z01.810 Encounter for preprocedural cardiovascular examination; Z90.710 Acquired absence of both cervix and uterus; Z99.2 Dependence on renal dialysis
CPT/HCPCS: 99285; 71045; 36415 ×2; 93005; 74176; 96374; 96375; 80076; 80048; 84703; 83690; 85025; 84484; 96376; J2405; J2270

== ENCOUNTER 2025-04-12 09:12 | Inpatient (IN) | payer OTHER, MEDICAID ==
[~2025-04-12] VITALS: Ht 165.1 cm; Wt 85.3 kg
[2025-04-12 09:20] VITALS: O2SAT 99
[2025-04-12] MEDS ORDERED: MORPHINE SULFATE 4 MG/ML INJ (FOR IV/IM USE) IV ONE (10:00)
[2025-04-12 10:17] LABS: BASOPHILS % 0.2 % (0.0-2.0); EOSINOPHILS % 0.1 % (0.0-5.0); HEMATOCRIT. 32.5 % (36.0-48.0); HEMOGLOBIN. 9.9 g/dL (12.0-16.0); LYMPHOCYTES % 7.5 % (20.0-50.0); MEAN PLATELET VOLUME 7.2 fl (7.4-10.4); MONOCYTES % 2.8 % (2.0-8.0); NEUTROPHILS % 89.4 % (40.0-76.0); PLATELET 615 x1000/uL (130-400); RED BLOOD CELL COUNT 3.34 mill/uL (4.2-5.4); RED CELL DISTRIBUTION WIDTH 25.7 % (11.6-14.6)
[2025-04-12 10:24] LABS: ADD RBC MORPHOLOGY YES
[2025-04-12 10:40] LABS: CREATININE 1.5 mg/dL (0.6-1.0); UREA NITROGEN BLOOD 11 mg/dL (9-23)
[2025-04-12 10:42] LABS: ASPARTATE AMINOTRANSFERASE 13 IU/L (<34); BILIRUBIN DIRECT < 0.1 mg/dL (<=3.0); BILIRUBIN TOTAL 0.2 mg/dL (0.1-1.0); PROTEIN TOTAL 7.0 g/dL (6.0-8.3)
[2025-04-12] MEDS ORDERED: KCL 20MEQ/100ML PREMIX 100 ML IV SCH (11:15)
[2025-04-12] MEDS: MORPHINE SULFATE 4 MG/ML INJ (FOR IV/IM USE) IV NR (11:34)
[2025-04-12] MEDS: ONDANSETRON HCL 4MG/2ML INJ IV ONE (11:34)
[2025-04-12] MEDS: PIPERACILLIN/TAZO 3.375G/50ML 50 ML IV STA (11:34)
[2025-04-12] MEDS ORDERED: IOHEXOL-300 100 ML BOTTLE ONE (11:54)
[2025-04-12 11:56] LABS: HCG SCREEN NEGATIVE
[2025-04-12] MEDS: KCL 20MEQ/100ML PREMIX 100 ML IV SCH (12:25)
[2025-04-12] MEDS: SODIUM CHLORIDE 0.9% 1,000 ML IV SCH (13:00)
[2025-04-12] MEDS ORDERED: MAGNESIUM/ALUMINUM HYDROXIDE/SIMETHICONE 30ML UDC PO PRN (13:00)
[2025-04-12] MEDS ORDERED: CLONIDINE 0.1MG TABLET PO PRN (13:00)
[2025-04-12] MEDS ORDERED: CEFTRIAXONE 1GM/50ML 50 ML IV SCH ×2 (13:00→21:00)
[2025-04-12] MEDS ORDERED: DEXTROSE 50% WATER 50ML SYRINGE IV PRN (13:15)
[2025-04-12] MEDS: INSULIN LISPRO 100 UNITS/ML SUBCUT SCH (13:20)
[2025-04-12] MEDS: ACETAMINOPHEN 325MG TABLET PO PRN (16:49)
[2025-04-12] MEDS: ENOXAPARIN 40MG/0.4ML SYR SUBCUT SCH (16:50)
[2025-04-12] MEDS: BLOOD SUGAR DIAGNOSTIC STRIP TEST SCH (17:00)
[2025-04-12 17:46] LABS: PLATELET ESTIMATE MARKEDLY INCREASED
[2025-04-12 20:00] VITALS: BP 100/30; PULSE 77; RESP 20; TEMP 36.3; O2SAT 96
[2025-04-12] MEDS ORDERED: POTASSIUM CHLORIDE 40 MEQ in DEXT 5% WATER 230 ML IV ONE (20:00)
[2025-04-12] MEDS ORDERED: NALOXONE HCL 0.4MG/ML VIAL IV PRN (20:15)
[2025-04-12] MEDS: CEFTRIAXONE 1GM/50ML 50 ML IV SCH (21:06)
[2025-04-12] MEDS: METRONIDAZOLE 500 MG PREMIX 100 ML IV SCH (21:06)
[2025-04-12] MEDS: KCL 20MEQ/100ML X 2 FOR TOTAL KCL 40MEQ/200ML IV SCH (21:06)
[2025-04-12] MEDS: MORPHINE SULFATE 10 MG/ML INJ (NOT FOR IM USE) IV PRN (21:13)
[2025-04-13] VITALS: BP 94/20; PULSE 63; RESP 16; TEMP 35.9; O2SAT 96
[2025-04-13 04:00] VITALS: BP 108/37; PULSE 95; RESP 17; TEMP 35.9; O2SAT 94
[2025-04-13 08:00] VITALS: BP 94/44; PULSE 95; RESP 18; TEMP 36; O2SAT 95
[2025-04-13] MEDS ORDERED: MAGNESIUM SULFATE 1GM/2ML VIAL IV ONE (09:45)
[2025-04-13] MEDS: KCL 20MEQ/100ML PREMIX 100 ML IV SCH (11:39)
[2025-04-13] MEDS: MAGNESIUM 1G PREMIX 100ML IV SCH (11:40)
[2025-04-13] MEDS: PANTOPRAZOLE SODIUM 40 MG/VIAL IV SCH (11:41)
[2025-04-13 12:00] VITALS: BP 98/50; PULSE 96; RESP 18; TEMP 36.1; O2SAT 96
[2025-04-13] MEDS ORDERED: METR-167 MT (14:31)
[2025-04-13] MEDS ORDERED: CEFT1FRO5 IV (14:31)
[2025-04-13] MEDS: HYDROCODONE/ACETAMINOPHEN 5/325MG TABLET PO PRN (15:46)
[2025-04-13 16:00] VITALS: BP 98/48; PULSE 96; RESP 18; TEMP 36.2; O2SAT 96
[2025-04-13] MEDS: MIDODRINE HCL 5MG TABLET PO SCH (17:00)
[2025-04-13 20:00] VITALS: BP 94/40; PULSE 91; RESP 19; TEMP 36.4; O2SAT 97
[2025-04-14] VITALS (11 sets, daily range): BP systolic 87–110; BP diastolic 39–65; PULSE 65–84; RESP 16–18; TEMP 35.7–36.6696; O2SAT 94–99
[2025-04-14] MEDS ORDERED: ENOXAPARIN 40MG/0.4ML SYR SUBCUT NR (00:45)
[2025-04-14] MEDS: ENOXAPARIN 80MG/0.8ML SYR SUBCUT SCH (09:13)
[2025-04-14 16:47] LABS: BASOPHILS % 0.1 % (0.0-2.0); EOSINOPHILS % 0.6 % (0.0-5.0); HEMATOCRIT. 31.7 % (36.0-48.0); HEMOGLOBIN. 9.6 g/dL (12.0-16.0); LYMPHOCYTES % 11.8 % (20.0-50.0); MEAN PLATELET VOLUME 6.9 fl (7.4-10.4); MONOCYTES % 3.4 % (2.0-8.0); NEUTROPHILS % 84.1 % (40.0-76.0); PLATELET 581 x1000/uL (130-400); RED BLOOD CELL COUNT 3.18 mill/uL (4.2-5.4); RED CELL DISTRIBUTION WIDTH 25.2 % (11.6-14.6)
[2025-04-14 16:54] LABS: CREATININE 1.2 mg/dL (0.6-1.0); UREA NITROGEN BLOOD 8 mg/dL (9-23)
[2025-04-14 16:56] LABS: BILIRUBIN DIRECT < 0.1 mg/dL (<=3.0); BILIRUBIN TOTAL < 0.2 mg/dL (0.1-1.0); PROTEIN TOTAL 6.1 g/dL (6.0-8.3)
[2025-04-14 16:58] LABS: ASPARTATE AMINOTRANSFERASE < 8 IU/L (<34)
[2025-04-14 17:02] LABS: PHOSPHORUS < 0.3 mg/dL (2.5-4.9)
[2025-04-14 17:31] LABS: HEPATITIS A AB IGM NEGATIVE (Negative)
[2025-04-14 17:32] LABS: HEPATITIS B CORE AB IGM NEGATIVE (Negative)
[2025-04-14 17:33] LABS: HEPATITIS C AB NON REACTIVE (Neg) (Negative)
[2025-04-14] MEDS: POTASSIUM PHOSPHATE 20 MMOL in DEXT 5% WATER 243.3333 ML IV SCH (18:27)
[2025-04-14] MEDS: EPOETIN ALFA-EPBX 4,000 UNITS/ML VIAL SUBCUT SCH (20:37)
[2025-04-15] VITALS: BP 94/56; PULSE 85; RESP 18; TEMP 36.4; O2SAT 96
[2025-04-15 04:00] VITALS: BP 104/49; PULSE 77; RESP 17; TEMP 36.6; O2SAT 96
[2025-04-15 08:00] VITALS: BP 103/54; PULSE 70; RESP 15; TEMP 36.3; O2SAT 96
[2025-04-15 08:28] LABS: UREA NITROGEN BLOOD 9.0 mg/dL (9-23)
[2025-04-15 09:13] LABS: CREATININE 1.8 mg/dL (0.6-1.0)
[2025-04-15 12:00] VITALS: BP 101/62; PULSE 64; RESP 13; TEMP 36.4; O2SAT 94
[2025-04-15] MEDS: POTASSIUM CHLORIDE 20MEQ TABLET SR PO NR (12:16)
[2025-04-15] MEDS: SODIUM HYPOCHLORITE 0.125% 473ML SOLUTION TOP SCH (13:00)
[2025-04-15] MEDS: MORPHINE SULFATE 4 MG/ML INJ (FOR IV/IM USE) IV PRN (14:00)
[2025-04-15] MEDS: ONDANSETRON HCL 4MG/2ML INJ IV PRN (18:17)
[2025-04-15 20:00] VITALS: BP 98/58; PULSE 91; RESP 18; TEMP 36.3; O2SAT 96
[2025-04-16] VITALS (11 sets, daily range): BP systolic 88–144; BP diastolic 25–67; PULSE 74–100; RESP 15–20; TEMP 36.1–36.7; O2SAT 96–100
[2025-04-16] MEDS ORDERED: LEVO250T74 MT (09:47)
[2025-04-16] MEDS ORDERED: METR-354 MT (09:47)
[2025-04-16 10:55] LABS: BASOPHILS % 0.1 % (0.0-2.0); EOSINOPHILS % 0.1 % (0.0-5.0); HEMATOCRIT. 32.2 % (36.0-48.0); HEMOGLOBIN. 9.7 g/dL (12.0-16.0); LYMPHOCYTES % 12.5 % (20.0-50.0); MEAN PLATELET VOLUME 6.9 fl (7.4-10.4); MONOCYTES % 2.7 % (2.0-8.0); NEUTROPHILS % 84.6 % (40.0-76.0); PLATELET 621 x1000/uL (130-400); RED BLOOD CELL COUNT 3.24 mill/uL (4.2-5.4); RED CELL DISTRIBUTION WIDTH 26.1 % (11.6-14.6)
[2025-04-16 12:38] LABS: CREATININE 1.5 mg/dL (0.6-1.0); UREA NITROGEN BLOOD 9.0 mg/dL (9-23)
[2025-04-16 13:14] LABS: PHOSPHORUS 0.6 mg/dL (2.5-4.9)
[2025-04-16] MEDS: POTASSIUM PHOSPHATE 30 MMOL in SODIUM CHLORIDE 0.9% 490 ML IV NR (15:38)
[2025-04-16] MEDS: ZOLPIDEM TARTRATE 5MG TABLET PO PRN (22:19)
[2025-04-17] VITALS: BP 116/65; PULSE 87; RESP 18; TEMP 36.3; O2SAT 100
[2025-04-17 04:00] VITALS: BP 115/62; PULSE 74; RESP 18; TEMP 36.3; O2SAT 100
[2025-04-17 08:00] VITALS: BP 142/73; PULSE 78; RESP 18; TEMP 36.3; O2SAT 97
[2025-04-17 12:00] VITALS: BP 124/62; PULSE 72; RESP 19; TEMP 36.9; O2SAT 96
[2025-04-17 16:00] VITALS: BP 114/62; PULSE 86; RESP 15; TEMP 36.3; O2SAT 97
[2025-04-17 20:00] VITALS: BP 112/65; PULSE 81; RESP 18; TEMP 36.6; O2SAT 100
[2025-04-18] VITALS: BP 137/65; PULSE 89; RESP 18; TEMP 36.6; O2SAT 100
[2025-04-18 02:26] LABS: PHOSPHORUS 1.3 mg/dL (2.5-4.9)
[2025-04-18 04:00] VITALS: BP 119/60; PULSE 87; RESP 19; TEMP 36.4; O2SAT 100
[2025-04-18 08:00] VITALS: BP_SYST 105; BP_SYST 137; BP_DIAS 55; BP_DIAS 65; PULSE 89; PULSE 95; RESP 14; RESP 18; TEMP 36.6; O2SAT 100; O2SAT 96
[2025-04-18 12:00] VITALS: BP 110/61; PULSE 92; RESP 14; TEMP 36.6; O2SAT 96
[2025-04-18 16:00] VITALS: BP 104/91; PULSE 91; RESP 13; TEMP 36.4; O2SAT 94
[2025-04-18 20:00] VITALS: BP 115/63; PULSE 78; RESP 19; TEMP 36.6; O2SAT 97
[2025-04-19] VITALS (15 sets, daily range): BP systolic 88–118; BP diastolic 48–69; PULSE 72–98; RESP 13–20; TEMP 36.2–36.72516; O2SAT 94–99
[2025-04-19 19:58] LABS: PLATELET 462 x1000/uL (130-400); RED BLOOD CELL COUNT 3.81 mill/uL (4.2-5.4); RED CELL DISTRIBUTION WIDTH 27.0 % (11.6-14.6)
[2025-04-20] VITALS: BP 108/59; PULSE 98; RESP 20; TEMP 36.2; O2SAT 96
[2025-04-20 04:00] VITALS: BP 133/65; PULSE 98; RESP 20; TEMP 36.2; O2SAT 96
[2025-04-20] MEDS: POTASSIUM CHLORIDE 20MEQ TABLET SR PO SCH (10:08)
[2025-04-20 15:56] VITALS: BP 111/68; PULSE 80; RESP 20; TEMP 97.7
== END 2025-04-20 17:20 | disposition short-term general hospital (02) | DRG 871 ==
LOC: ER 09:16 → EDBEDREQTM 11:57 → EDBEDREQSVC 11:57 → EDBEDREQ 11:57 → ENRESERV 13:44 → 6WST 18:29
PROVIDERS: ADMIT Internal Medicine; ATTEND Internal Medicine
PROC: 5A1D70Z Performance of Urinary Filtration, Intermittent, Less than 6 Hours Per Day (ICD-10-PCS; principal; 2025-04-14)
PROC: 5A1D70Z Performance of Urinary Filtration, Intermittent, Less than 6 Hours Per Day (ICD-10-PCS; 2025-04-16)
PROC: 5A1D70Z Performance of Urinary Filtration, Intermittent, Less than 6 Hours Per Day (ICD-10-PCS; 2025-04-19)
DX: A41.9 Sepsis, unspecified organism (principal); L89.894 Pressure ulcer of other site, stage 4; N18.6 End stage renal disease; E44.0 Moderate protein-calorie malnutrition; E11.52 Type 2 diabetes mellitus with diabetic peripheral angiopathy with gangrene; M46.24 Osteomyelitis of vertebra, thoracic region; I12.0 Hypertensive chronic kidney disease with stage 5 chronic kidney disease or end stage renal disease; E11.69 Type 2 diabetes mellitus with other specified complication; E11.22 Type 2 diabetes mellitus with diabetic chronic kidney disease; D64.9 Anemia, unspecified; Z99.2 Dependence on renal dialysis; Z68.31 Body mass index [BMI] 31.0-31.9, adult; R60.1 Generalized edema; E78.5 Hyperlipidemia, unspecified; K58.9 Irritable bowel syndrome, unspecified; K57.30 Diverticulosis of large intestine without perforation or abscess without bleeding; K44.9 Diaphragmatic hernia without obstruction or gangrene; K83.8 Other specified diseases of biliary tract; N30.90 Cystitis, unspecified without hematuria; L89.310 Pressure ulcer of right buttock, unstageable; L89.320 Pressure ulcer of left buttock, unstageable; L89.210 Pressure ulcer of right hip, unstageable; L89.220 Pressure ulcer of left hip, unstageable; L89.140 Pressure ulcer of left lower back, unstageable; L89.130 Pressure ulcer of right lower back, unstageable; L89.620 Pressure ulcer of left heel, unstageable; L89.610 Pressure ulcer of right heel, unstageable; L89.150 Pressure ulcer of sacral region, unstageable; Z90.710 Acquired absence of both cervix and uterus; Z79.899 Other long term (current) drug therapy; Z82.49 Family history of ischemic heart disease and other diseases of the circulatory system
CPT/HCPCS: 36415; 74177; 80048; 80076; 82306; 82962; 83735; 84100; 84703; 85025; 85027; 86705; 86709; 87340; 90935; 93005; 93923; 93970; 99291; J0696; J0885; J1650; J1815; J2270; J2405; J2470; J2543; J3475; J3480; J3490; J7040; J7060; Q9967